=== PATIENT | female | born 1950 | race Caucasian/White ===

== ENCOUNTER 2017-06-19 01:48 | Outpatient (CLI) | payer MEDICARE, MEDICAID ==
[~2017-06-19 01:48] MED LIST: ACYC-202 PO; CALC500T46; DIPH-186 PO; ENAL20TA75 PO; FLEC50TA10 PO; GABA-341 PO; HYDR-3965 PO; MAGN500C16 PO; METF500T PO; MULT-1085 PO; NOR5T PO; PRAV40TA65 PO; RIVA10TA PO; TIZA4CAP6 PO
== END 2017-06-19 23:59 | disposition home or self-care (01) ==
LOC: DIABETIC 01:48
PROVIDERS: ATTEND Specialist
DX: E11.9 Type 2 diabetes mellitus without complications (principal); I10 Essential (primary) hypertension; J45.909 Unspecified asthma, uncomplicated; Z85.528 Personal history of other malignant neoplasm of kidney
CPT/HCPCS: G0108

== ENCOUNTER 2017-09-18 02:43 | Outpatient (CLI) | payer MEDICARE, MEDICAID | END 2017-09-18 23:59 | disposition home or self-care (01) | LOC: DIABETIC 02:43 | PROVIDERS: ATTEND Specialist | DX: E11.9 Type 2 diabetes mellitus without complications (principal) | CPT/HCPCS: G0108 ==

== ENCOUNTER 2017-11-29 09:11 | Outpatient (CLI) | payer MEDICARE, MEDICAID | END 2017-11-29 10:11 | disposition home or self-care (01) | LOC: ORTHO 09:11 | PROVIDERS: ATTEND Nurse Practitioner Family | DX: S82.832A Other fracture of upper and lower end of left fibula, initial encounter for closed fracture (principal); I10 Essential (primary) hypertension; E11.9 Type 2 diabetes mellitus without complications; I48.91 Unspecified atrial fibrillation; J45.909 Unspecified asthma, uncomplicated; E78.00 Pure hypercholesterolemia, unspecified; W01.0XXA Fall on same level from slipping, tripping and stumbling without subsequent striking against object, initial encounter; Y93.89 Activity, other specified; Y92.89 Other specified places as the place of occurrence of the external cause; Y99.8 Other external cause status | CPT/HCPCS: 73610; 99213 ==

== ENCOUNTER 2017-12-04 05:02 | Outpatient (CLI) | payer MEDICARE, MEDICAID | END 2017-12-04 23:59 | disposition home or self-care (01) | LOC: DIABETIC 05:02 | PROVIDERS: ATTEND Specialist | DX: E11.9 Type 2 diabetes mellitus without complications (principal); I10 Essential (primary) hypertension; J45.909 Unspecified asthma, uncomplicated | CPT/HCPCS: G0108 ==

== ENCOUNTER 2017-12-14 10:45 | Outpatient (CLI) | payer MEDICARE, MEDICAID ==
[2017-12-14 10:58] VITALS: BP 125/68
== END 2017-12-14 11:20 | disposition home or self-care (01) ==
LOC: ORTHO 10:45
PROVIDERS: ATTEND Nurse Practitioner Family
DX: M77.32 Calcaneal spur, left foot (principal); S82.832G Other fracture of upper and lower end of left fibula, subsequent encounter for closed fracture with delayed healing; I48.91 Unspecified atrial fibrillation; E78.00 Pure hypercholesterolemia, unspecified; I10 Essential (primary) hypertension; E11.9 Type 2 diabetes mellitus without complications; M19.90 Unspecified osteoarthritis, unspecified site; Z60.2 Problems related to living alone; Z88.8 Allergy status to other drugs, medicaments and biological substances; X58.XXXD Exposure to other specified factors, subsequent encounter
CPT/HCPCS: 73610; 99213; A4590

== ENCOUNTER 2018-01-08 09:56 | Outpatient (CLI) | payer MEDICARE, MEDICAID ==
[2018-01-08 10:42] VITALS: BP 127/77
== END 2018-01-08 10:35 | disposition home or self-care (01) ==
LOC: ORTHO 09:56
PROVIDERS: ATTEND Nurse Practitioner Family
DX: S82.832G Other fracture of upper and lower end of left fibula, subsequent encounter for closed fracture with delayed healing (principal); I48.91 Unspecified atrial fibrillation; E78.00 Pure hypercholesterolemia, unspecified; I10 Essential (primary) hypertension; E11.9 Type 2 diabetes mellitus without complications; J45.909 Unspecified asthma, uncomplicated; Z88.8 Allergy status to other drugs, medicaments and biological substances; X58.XXXD Exposure to other specified factors, subsequent encounter
CPT/HCPCS: 73610; 99213; A4590

== ENCOUNTER 2018-01-30 10:49 | Outpatient (CLI) | payer MEDICARE, MEDICAID ==
[2018-01-30 10:54] VITALS: BP 94/62
== END 2018-01-30 11:36 | disposition home or self-care (01) ==
LOC: ORTHO 10:49
PROVIDERS: ATTEND Nurse Practitioner Family
DX: S82.832G Other fracture of upper and lower end of left fibula, subsequent encounter for closed fracture with delayed healing (principal); E78.00 Pure hypercholesterolemia, unspecified; I10 Essential (primary) hypertension; I48.91 Unspecified atrial fibrillation; E11.9 Type 2 diabetes mellitus without complications; M19.90 Unspecified osteoarthritis, unspecified site; Z60.2 Problems related to living alone; Z87.891 Personal history of nicotine dependence; Z88.8 Allergy status to other drugs, medicaments and biological substances; X58.XXXD Exposure to other specified factors, subsequent encounter
CPT/HCPCS: 73610; L4360

== ENCOUNTER 2018-02-27 09:51 | Outpatient (CLI) | payer MEDICARE, MEDICAID ==
[2018-02-27 09:53] VITALS: BP 122/68
== END 2018-02-27 10:42 | disposition home or self-care (01) ==
LOC: ORTHO 09:51
PROVIDERS: ATTEND Nurse Practitioner Family
DX: S82.832K Other fracture of upper and lower end of left fibula, subsequent encounter for closed fracture with nonunion (principal); I48.91 Unspecified atrial fibrillation; E78.00 Pure hypercholesterolemia, unspecified; I10 Essential (primary) hypertension; E11.9 Type 2 diabetes mellitus without complications; Z88.8 Allergy status to other drugs, medicaments and biological substances; Z87.891 Personal history of nicotine dependence; Z60.2 Problems related to living alone; W01.0XXD Fall on same level from slipping, tripping and stumbling without subsequent striking against object, subsequent encounter
CPT/HCPCS: 73610; 99213

== ENCOUNTER 2018-04-23 10:09 | Outpatient (CLI) | payer MEDICARE, MEDICAID ==
[2018-04-23 10:08] VITALS: BP 153/75
[2018-04-26] MEDS ORDERED: SIME125C43 PO (16:53)
[2018-04-26] MEDS ORDERED: OMEG1CAP13 PO (16:53)
[2018-04-26] MEDS ORDERED: ENAL10TA78 PO (16:53)
[2018-04-26] MEDS ORDERED: LORA10TA7 PO (16:53)
[2018-04-26] MEDS ORDERED: ATOR40TA71 PO (16:53)
[2018-04-26] MEDS ORDERED: ALBU8HFA PO (16:53)
[2018-04-26] MEDS ORDERED: HYDR-4353 PO (16:53)
[2018-04-26] MEDS ORDERED: GABA-532 PO (16:53)
== END 2018-04-23 10:42 | disposition home or self-care (01) ==
LOC: ORTHO 10:09
PROVIDERS: ATTEND Nurse Practitioner Family
DX: S82.832G Other fracture of upper and lower end of left fibula, subsequent encounter for closed fracture with delayed healing (principal); M85.88 Other specified disorders of bone density and structure, other site; Z60.2 Problems related to living alone; I48.91 Unspecified atrial fibrillation; E78.00 Pure hypercholesterolemia, unspecified; I10 Essential (primary) hypertension; E11.9 Type 2 diabetes mellitus without complications; M19.90 Unspecified osteoarthritis, unspecified site; J45.909 Unspecified asthma, uncomplicated; Z88.8 Allergy status to other drugs, medicaments and biological substances; Z79.899 Other long term (current) drug therapy; Z90.710 Acquired absence of both cervix and uterus; W01.0XXD Fall on same level from slipping, tripping and stumbling without subsequent striking against object, subsequent encounter
CPT/HCPCS: 73610; 99213

== ENCOUNTER → 2018-04-30 | Day surgery (SDC) | payer MEDICARE, MEDICAID ==
[2018-04-26 15:55] LABS: BASOPHILS % (AUTO) 0.3 % (0-1); EOSINOPHILS # (AUTO) 0.2 X10'3 (0-0.9); LYMPHOCYTES # (AUTO) 2.1 X10'3 (1.1-4.8); LYMPHOCYTES % (AUTO) 23.3 % (21-51); MEAN CORPUSCULAR HGB CONC 33.2 % (33.0-36.5); MEAN CORPUSCULAR VOLUME 90.3 FL (78-98); MEAN PLATELET VOLUME 7.7 FL (7.4-10.4); MONOCYTES # (AUTO) 0.6 X10'3 (0-0.9); MONOCYTES % (AUTO) 6.4 % (2-12); PRE OP HEMATOCRIT 40.1 % (35.0-45.0); PRE OP HEMOGLOBIN 13.3 g/dL (12.0-16.0); PRE OP PLATELET COUNT 236 X10'3 (140-440); RED BLOOD COUNT 4.44 X10'6 (4.20-5.60); RED CELL DISTRIBUTION WIDTH 14.2 % (11.5-14.5)
[2018-04-26 15:55] LABS: CLARITY,URINE CLEAR (Clear); COLOR,URINE YELLOW (Yellow); GLUCOSE, URINE NEGATIVE (Neg); KETONES,URINE NEGATIVE (Neg); LEUKOCYTE ESTERASE ,URINE NEGATIVE (Neg); NITRITES, URINE NEGATIVE (Neg); OCCULT BLOOD,URINE NEGATIVE (Neg); PROTEIN,URINE NEGATIVE (Neg); UROBILINOGEN,URINE 0.2 E.U/dL (0.2-1.0)
[2018-04-26 15:56] LABS: UA COLLECTION TYPE NON-SPECIFIED
[2018-04-26 16:09] LABS: ALBUMIN 3.9 G/DL (3.4-5.0); ALBUMIN/GLOBULIN RATIO 1.1 (1.1-1.5); ALKALINE PHOSPHATASE 97 IU/L (46-116); BLOOD UREA NITROGEN 23 MG/DL (7-18); BUN/CREATININE RATIO 21.7 (6.6-38.0); CALCIUM 8.5 MG/DL (8.5-10.1); CHLORIDE 103 MMOL/L (99-107); CREATININE 1.06 MG/DL (0.40-0.90); PRE OP ALT 17 U/L (30-65); PRE OP ANION GAP 7 (8-16); PRE OP AST 31 U/L (10-37); PRE OP BILIRUB, TOTAL 0.4 MG/DL (0.0-1.0); PRE OP GLUCOSE 95 MG/DL (70-104); PRE OP POTASSIUM 3.5 MMOL/L (3.4-5.1); PRE OP SODIUM 143 MMOL/L (135-145); TOTAL CARBON DIOXIDE 33.1 MMOL/L (24-32); TOTAL PROTEIN 7.4 G/DL (6.4-8.2); eGFR 52 ML/MIN
[2018-04-30] VITALS (11 sets, daily range): BP systolic 107–145; BP diastolic 68–83
[~2018-04-30] VITALS: Ht 167 cm; Wt 78.9 kg
[~2018-04-30] MED LIST changes: +ALBU8HFA PO; +ATOR40TA71 PO; +BUPIVAcaine/PF 2.5mg/ml (0.25%) 10ml vial ONE; -DIPH-186 PO; +ENAL10TA78 PO; -ENAL20TA75 PO; -GABA-341 PO; +GABA-532 PO; -HYDR-3965 PO; +HYDR-4353 PO; +HYDROcodone/acetaminophen 10/325mg tab PO ONE; +LORA10TA7 PO; -MULT-1085 PO; -NOR5T PO; +OMEG1CAP13 PO; -PRAV40TA65 PO; +SIME125C43 PO; +ceFAZolin 1000mg inj ONE; +cefazolin/dext.iso 2gm/100 ML IV ONE; +famotidine 20mg tablet PO ONE; +fentaNYL/PF 50MCG/1 ML 2ML syringe ONE; +meperidine/PF 25mg/ml syringe IV PRN; +midazolam 2 mg/2 ml injection ONE; +morphine 4 MG/ML inj SYRINge IV PRN; +ondansetron/PF 4mg/2ml inj IV PRN; +proCHLORperazine 10 MG/2 ml inj IV PRN; +propofol inj 20 ML IV ONE; +ringers solution, lacted 1,000 ML IV SCH; +sevoflurane 250ml liquid IH ONE
[2018-04-30 10:52] LABS: PARTIAL THROMBOPLASTIN TIME 27 SECONDS (22-32); PROTHROMBIN TIME 10.6 SECONDS (9.0-12.0)
== END | disposition home or self-care (01) ==
LOC: PAS 09:17
PROVIDERS: ATTEND Surgery
DX: K40.20 Bilateral inguinal hernia, without obstruction or gangrene, not specified as recurrent (principal); E11.9 Type 2 diabetes mellitus without complications; J45.909 Unspecified asthma, uncomplicated; I49.9 Cardiac arrhythmia, unspecified; M19.90 Unspecified osteoarthritis, unspecified site; E78.00 Pure hypercholesterolemia, unspecified; Z85.528 Personal history of other malignant neoplasm of kidney; G89.29 Other chronic pain; Z87.891 Personal history of nicotine dependence; Z90.49 Acquired absence of other specified parts of digestive tract; Z90.710 Acquired absence of both cervix and uterus; Z90.5 Acquired absence of kidney; Z98.890 Other specified postprocedural states
CPT/HCPCS: 36415; 49505; 80053; 81003; 82948; 85025; 85610; 85730; 93005; A6449; C1781; J0690; J2250; J2704; J3010; J3490; A7000; J7120

== ENCOUNTER 2018-06-04 10:19 | Outpatient (CLI) | payer MEDICARE, MEDICAID ==
[2018-06-04 10:14] VITALS: BP 111/74
[~2018-06-04 10:19] MED LIST changes: -BUPIVAcaine/PF 2.5mg/ml (0.25%) 10ml vial ONE; -HYDROcodone/acetaminophen 10/325mg tab PO ONE; -ceFAZolin 1000mg inj ONE; -cefazolin/dext.iso 2gm/100 ML IV ONE; -famotidine 20mg tablet PO ONE; -fentaNYL/PF 50MCG/1 ML 2ML syringe ONE; -meperidine/PF 25mg/ml syringe IV PRN; -midazolam 2 mg/2 ml injection ONE; -morphine 4 MG/ML inj SYRINge IV PRN; -ondansetron/PF 4mg/2ml inj IV PRN; -proCHLORperazine 10 MG/2 ml inj IV PRN; -propofol inj 20 ML IV ONE; -ringers solution, lacted 1,000 ML IV SCH; -sevoflurane 250ml liquid IH ONE
== END 2018-06-04 10:47 | disposition home or self-care (01) ==
LOC: ORTHO 10:19
PROVIDERS: ATTEND Nurse Practitioner Family
DX: S82.832D Other fracture of upper and lower end of left fibula, subsequent encounter for closed fracture with routine healing (principal); I48.91 Unspecified atrial fibrillation; E78.00 Pure hypercholesterolemia, unspecified; I10 Essential (primary) hypertension; E11.9 Type 2 diabetes mellitus without complications; M19.90 Unspecified osteoarthritis, unspecified site; J45.909 Unspecified asthma, uncomplicated; Z88.8 Allergy status to other drugs, medicaments and biological substances; Z79.899 Other long term (current) drug therapy; Z60.2 Problems related to living alone; W01.0XXD Fall on same level from slipping, tripping and stumbling without subsequent striking against object, subsequent encounter
CPT/HCPCS: 73610; 99213

== ENCOUNTER 2018-06-11 00:18 | Outpatient (CLI) | payer MEDICARE, MEDICAID | END 2018-06-11 23:59 | disposition home or self-care (01) | LOC: DIABETIC 00:18 | PROVIDERS: ATTEND Specialist | DX: E11.9 Type 2 diabetes mellitus without complications (principal); J45.909 Unspecified asthma, uncomplicated; Z90.710 Acquired absence of both cervix and uterus; Z98.890 Other specified postprocedural states; Z79.899 Other long term (current) drug therapy; Z79.84 Long term (current) use of oral hypoglycemic drugs; Z88.8 Allergy status to other drugs, medicaments and biological substances | CPT/HCPCS: G0108 ==

== ENCOUNTER 2018-09-11 02:26 | Outpatient (CLI) | payer MEDICARE, MEDICAID | END 2018-09-11 23:59 | disposition home or self-care (01) | LOC: DIABETIC 02:26 | PROVIDERS: ATTEND Specialist | DX: E11.9 Type 2 diabetes mellitus without complications (principal); J45.909 Unspecified asthma, uncomplicated; Z79.84 Long term (current) use of oral hypoglycemic drugs; Z90.710 Acquired absence of both cervix and uterus; Z98.51 Tubal ligation status | CPT/HCPCS: G0108 ==

== ENCOUNTER → 2018-09-17 | Outpatient (CLI) | payer MEDICARE, MEDICAID ==
[2018-09-17 09:41] VITALS: BP 136/86
== END | disposition home or self-care (01) ==
LOC: ORTHO 09:59
PROVIDERS: ATTEND Nurse Practitioner Family
DX: S82.832D Other fracture of upper and lower end of left fibula, subsequent encounter for closed fracture with routine healing (principal); I10 Essential (primary) hypertension; E78.00 Pure hypercholesterolemia, unspecified; E11.9 Type 2 diabetes mellitus without complications; M19.90 Unspecified osteoarthritis, unspecified site; I48.91 Unspecified atrial fibrillation; J45.909 Unspecified asthma, uncomplicated; Z87.891 Personal history of nicotine dependence; Z60.2 Problems related to living alone; Z88.8 Allergy status to other drugs, medicaments and biological substances; W01.0XXD Fall on same level from slipping, tripping and stumbling without subsequent striking against object, subsequent encounter
CPT/HCPCS: 73610; 99213

== ENCOUNTER 2019-03-20 03:48 | Outpatient (CLI) | payer MEDICARE, MEDICAID | END 2019-03-20 23:59 | disposition home or self-care (01) | LOC: DIABETIC 03:48 | PROVIDERS: ATTEND Specialist | DX: E11.65 Type 2 diabetes mellitus with hyperglycemia (principal); J45.909 Unspecified asthma, uncomplicated; Z79.84 Long term (current) use of oral hypoglycemic drugs; Z79.899 Other long term (current) drug therapy | CPT/HCPCS: G0108 ==

== ENCOUNTER 2019-06-19 01:32 | Outpatient (CLI) | payer MEDICARE, MEDICAID | END 2019-06-19 23:59 | disposition home or self-care (01) | LOC: DIABETIC 01:32 | PROVIDERS: ATTEND Specialist | DX: E11.65 Type 2 diabetes mellitus with hyperglycemia (principal); Z79.84 Long term (current) use of oral hypoglycemic drugs | CPT/HCPCS: G0108 ==

== ENCOUNTER 2024-07-15 09:24 | Outpatient (CLI) | payer BC, MEDICAID ==
[~2024-07-15 09:24] MED LIST changes: +ACYC-129 PO; -ACYC-202 PO; +APIX5TAB3 PO; +BUDE10.32 PO; +CALC-931; -CALC500T46; +CARB1TAB42 PO; +CYCL-1 PO; +DULO30CA52 PO; -ENAL10TA78 PO; +FERR210T PO; -HYDR-4353 PO; +LATA2.5D14 EACHEYE; +LOSA-415 PO; -MAGN500C16 PO; +MAGN500C4 PO; +OMEG-45 PO; -OMEG1CAP13 PO; -RIVA10TA PO; +SEMA1PEN3; -TIZA4CAP6 PO
[2024-07-15 10:36] LABS: BASOPHILS # (AUTO) 0.1 X10'3 (0-0.2); BASOPHILS % (AUTO) 0.8 % (0-1); EOSINOPHILS # (AUTO) 0.1 X10'3 (0-0.9); EOSINOPHILS % (AUTO) 1.3 % (0-6); HEMATOCRIT 35.6 % (35.0-45.0); HEMOGLOBIN 12.1 g/dl (12.0-16.0); LYMPHOCYTES % (AUTO) 23.6 % (21-51); MEAN CORPUSCULAR HEMOGLOBIN 30.3 PG (27.0-31.0); MEAN CORPUSCULAR HGB CONC 33.9 g/dL (33.0-36.5); MEAN CORPUSCULAR VOLUME 89.3 FL (78-98); MEAN PLATELET VOLUME 6.1 FL (7.4-10.4); MONOCYTES # (AUTO) 0.7 X10'3 (0-0.9); MONOCYTES % (AUTO) 7.8 % (2-12); NEUTROPHILS # (AUTO) 5.7 X10'3 (1.8-7.7); NEUTROPHILS % (AUTO) 66.5 % (42-75); PLATELET COUNT 678 X10'3 (140-440); RED BLOOD COUNT 3.99 X10'6 (4.20-5.60); RED CELL DISTRIBUTION WIDTH 15.9 % (11.5-14.5); WHITE BLOOD COUNT 8.6 X10'3 (4.5-11.0)
== END 2024-07-15 23:59 | disposition home or self-care (01) ==
LOC: LAB 09:24
PROVIDERS: ATTEND Student in an Organized Health Care Education/Training Program
DX: S70.11XA Contusion of right thigh, initial encounter (principal); D64.9 Anemia, unspecified; X58.XXXA Exposure to other specified factors, initial encounter; Y93.89 Activity, other specified; Y92.89 Other specified places as the place of occurrence of the external cause; Y99.8 Other external cause status
CPT/HCPCS: 85025

== ENCOUNTER 2024-07-17 18:22 | Emergency (ER) | payer BC, MEDICAID ==
[~2024-07-17] VITALS: Ht 167.6 cm; Wt 81.7 kg
[2024-07-17 18:33] VITALS: TEMP 98.2
[2024-07-17 19:39] LABS: BASOPHILS # (AUTO) 0.1 X10'3 (0-0.2); BASOPHILS % (AUTO) 0.6 % (0-1); EOSINOPHILS # (AUTO) 0.1 X10'3 (0-0.9); EOSINOPHILS % (AUTO) 1.1 % (0-6); HEMATOCRIT 35.5 % (35.0-45.0); LYMPHOCYTES # (AUTO) 1.9 X10'3 (1.1-4.8); LYMPHOCYTES % (AUTO) 20.1 % (21-51); MEAN CORPUSCULAR HGB CONC 33.9 g/dL (33.0-36.5); MEAN CORPUSCULAR VOLUME 88.4 FL (78-98); MEAN PLATELET VOLUME 6.6 FL (7.4-10.4); MONOCYTES # (AUTO) 0.8 X10'3 (0-0.9); NEUTROPHILS # (AUTO) 6.7 X10'3 (1.8-7.7); NEUTROPHILS % (AUTO) 70.2 % (42-75); PLATELET COUNT 546 X10'3 (140-440); RED BLOOD COUNT 4.02 X10'6 (4.20-5.60); WHITE BLOOD COUNT 9.5 X10'3 (4.5-11.0)
[2024-07-17 19:55] LABS: ANION GAP 11 (8-16); BLOOD UREA NITROGEN 21 MG/DL (7-18); BUN/CREATININE RATIO 27.6 (10.0-20.0); CALCIUM 8.8 MG/DL (8.5-10.1); CHLORIDE 101 MMOL/L (99-107); CREATININE 0.76 MG/DL (0.40-0.90); GLUCOSE 138 MG/DL (70-104); POTASSIUM 4.2 MMOL/L (3.5-5.1); SODIUM 138 MMOL/L (135-145); eCRCL 62 ML/MIN; eGFR 75 ML/MIN
[2024-07-17 20:27] LABS: BURR CELLS FEW; ELLIPTOCYTES FEW; POIKILOCYTOSIS FEW
[2024-07-17] MEDS ORDERED: LIDOcaine 1% W/epiNEPHrine 1:100,000 20ml vial IJ ONE (23:10)
[2024-07-18 01:43] VITALS: BP 135/87; PULSE 83; RESP 15; O2SAT 99
== END 2024-07-18 01:45 | disposition home or self-care (01) ==
LOC: ER 18:23
DX: S71.111A Laceration without foreign body, right thigh, initial encounter (principal); E11.9 Type 2 diabetes mellitus without complications; E78.00 Pure hypercholesterolemia, unspecified; I48.91 Unspecified atrial fibrillation; I10 Essential (primary) hypertension; M19.90 Unspecified osteoarthritis, unspecified site; Z90.710 Acquired absence of both cervix and uterus; Z88.8 Allergy status to other drugs, medicaments and biological substances; Z79.899 Other long term (current) drug therapy; Z60.2 Problems related to living alone; W13.2XXA Fall from, out of or through roof, initial encounter; Y93.89 Activity, other specified; Y92.89 Other specified places as the place of occurrence of the external cause; Y99.8 Other external cause status
CPT/HCPCS: 11042; 80048; 84145; 85008; 85025; 99285; A6253; A6449

== ENCOUNTER 2024-10-13 09:09 | Emergency (ER) | payer MEDICARE, MEDICAID ==
[~2024-10-13] VITALS: Ht 167.6 cm; Wt 80.7 kg
[~2024-10-13 09:09] MED LIST changes: -LOSA-415 PO
[2024-10-13 09:12] VITALS: BP 146/75; PULSE 80; RESP 18; O2SAT 98
[2024-10-13 10:00] VITALS: TEMP 97.5
== END 2024-10-13 10:01 | disposition home or self-care (01) ==
LOC: ER 09:10
DX: S59.901A Unspecified injury of right elbow, initial encounter (principal); E11.9 Type 2 diabetes mellitus without complications; E78.00 Pure hypercholesterolemia, unspecified; I10 Essential (primary) hypertension; I48.91 Unspecified atrial fibrillation; M19.90 Unspecified osteoarthritis, unspecified site; Z88.8 Allergy status to other drugs, medicaments and biological substances; Z90.710 Acquired absence of both cervix and uterus; W19.XXXA Unspecified fall, initial encounter; Y93.89 Activity, other specified; Y92.89 Other specified places as the place of occurrence of the external cause; Y99.8 Other external cause status
CPT/HCPCS: 73080; 99283